=== PATIENT | female | born 1970 | race Asian ===

== ENCOUNTER 2019-02-17 09:25 | Emergency (ER) | payer BC ==
--- NOTE | 2019-02-17 09:48 | ER Document Report ---
ED Medical Screen (RME) - General Chief Complaint: Flank Pain Stated Complaint: BACK PAIN Time Seen by Provider: 02/17/19 09:39 Mode of Arrival: Ambulatory Information source: Patient Notes: Patient is an otherwise healthy 48-year-old female who presents to the emergency department with chief complaint of left lateral rib pain. Patient denies any known injury but states that the pain started yesterday after she was drinking alcohol and she is not sure if maybe she fell into something. She also reports increased activity and heavy lifting yesterday as she was getting ready for a birthday democrat. Patient denies any chest pain, shortness of breath, cough or fever. She has no history of pulmonary embolism. Exam: Lung sounds are clear and equal bilaterally. I have greeted and performed a rapid initial assessment of this patient. A comprehensive ED assessment and evaluation of the patient, analysis of test results and completion of the medical decision making process will be conducted by additional ED providers. Dictation of this chart was performed using voice recognition software; therefore, there may be some unintended grammatical errors. TRAVEL OUTSIDE OF THE [place] IN LAST 30 DAYS: No - Related Data Allergies/Adverse Reactions: No Known Allergies Allergy (Verified 02/17/19 09:27) Physical Exam - Vital signs Vitals: Temp Pulse Resp BP Pulse Ox 98.1 F 89 18 186/116 H 95 02/17/19 09:34 02/17/19 09:34 02/17/19 09:34 02/17/19 09:34 02/17/19 09:34 Course - Vital Signs Vital signs: Temp Pulse Resp BP Pulse Ox 98.1 F 89 18 186/116 H 95 02/17/19 09:34 02/17/19 09:34 02/17/19 09:34 02/17/19 09:34 02/17/19 09:34
--- NOTE | 2019-02-17 10:56 | RADIOLOGY REPORT (SQ) ---
EXAM DESCRIPTION: RIBS LEFT W/PA CHEST COMPLETED DATE/TIME: 02/17/2019 10:05 am REASON FOR STUDY: Left lateral rib pain COMPARISON: None. TECHNIQUE: Frontal view of the chest and additional views of the left ribs acquired. NUMBER OF VIEWS: PA chest, left rib detail two views LIMITATIONS: None. FINDINGS: FRONTAL CXR: No pneumothorax. No pleural effusion. No atelectasis or infiltrates. Cardi ac silhouette size, arsalan unremarkable. RIBS: Acute left lateral 8th and 9th nondisplaced rib fractures are present. OTHER: No other significant finding. IMPRESSION: Acute left lateral 8th and 9th nondisplaced rib fractures are present. No left chest wa ll air or pneumothorax. No left pleural effusion COMMENT: SITE OF TRAUMA/COMPLAINT MARKED/STAMP COMPLETED: NO. TECHNICAL DOCUMENTATION: JOB ID: [id number] [employer]- All Rights Reserved Reading location - IP/workstation name: [email or web address]
[2019-02-17] MEDS ORDERED: OXYCODONE-ACETAMINOPHEN 5-325 MG TABLET PO ONE (11:10)
--- NOTE | 2019-02-17 11:13 | ER Document Report ---
ED General - General Chief Complaint: Flank Pain Stated Complaint: BACK PAIN Time Seen by Provider: 02/17/19 09:39 Mode of Arrival: Ambulatory Notes: Patient is an otherwise healthy 48-year-old female who presents to the emergency department with chief complaint of left lateral rib pain. Patient denies any known injury but states that the pain started yesterday after she was drinking alcohol and she is not sure if maybe she fell into something. She also reports increased activity and heavy lifting yesterday as she was getting ready for a birthday republican. Patient denies any chest pain, shortness of breath, cough or fever. She has no history of pulmonary embolism. TRAVEL OUTSIDE OF THE [place] IN LAST 30 DAYS: No - Related Data Allergies/Adverse Reactions: No Known Allergies Allergy (Verified 02/17/19 09:27) Past Medical History - General Information source: Patient - Social History Smoking Status: Current Every Day Smoker Chew tobacco use (# tins/day): No Frequency of alcohol use: Occasional Drug Abuse: None Family History: Reviewed & Not Pertinent Patient has suicidal ideation: No Patient has homicidal ideation: No - Medical History Medical History: Negative Renal/ Medical History: Denies: Hx Peritoneal Dialysis Surgical Hx: Negative - Immunizations Immunizations up to date: Yes Review of Systems - Review of Systems Constitutional: No symptoms reported EENT: No symptoms reported Cardiovascular: No symptoms reported Respiratory: No symptoms reported Gastrointestinal: No symptoms reported Genitourinary: No symptoms reported Female Genitourinary: No symptoms reported Musculoskeletal: See HPI Skin: No symptoms reported Hematologic/Lymphatic: No symptoms reported Neurological/Psychological: No symptoms reported Physical Exam - Vital signs Vitals: Temp Pulse Resp BP Pulse Ox 98.1 F 89 18 186/116 H 95 02/17/19 09:34 02/17/19 09:34 02/17/19 09:34 02/17/19 09:34 02/17/19 09:34 - Notes Notes: PHYSICAL EXAMINATION: GENERAL: Well-appearing, well-nourished and in no acute distress. HEAD: Atraumatic, normocephalic. EYES: Pupils equal round and reactive to light, extraocular movements intact, conjunctiva are normal. ENT: Nares patent, oropharynx clear without exudates. Moist mucous membranes. NECK: Normal range of motion, supple without lymphadenopathy LUNGS: Breath sounds clear to auscultation bilaterally and equal. No wheezes rales or rhonchi. HEART: Regular rate and rhythm without murmurs ABDOMEN: Soft, nontender, nondistended abdomen. No guarding, no rebound. No masses appreciated. Female : deferred Musculoskeletal: Tenderness to palpation to left lateral/anterior ribs. No crepitus on palpation. NEUROLOGICAL: Cranial nerves grossly intact. Normal speech, normal gait. Normal sensory, motor exams PSYCH: Normal mood, normal affect. SKIN: Warm, Dry, normal turgor, no rashes or lesions noted. Course - Re-evaluation Re-evalutation: 02/17/19 11:15 X-ray shows acute lateral left eighth and ninth rib fractures. These are nondisplaced. No evidence of pneumothorax. Lung sounds are clear and equal bilaterally. Patient will be discharged home with prescription for pain medication and incentive spirometer. Discussed ED return precautions. - Vital Signs Vital signs: Temp Pulse Resp BP Pulse Ox 98.1 F 88 16 182/104 H 96 02/17/19 09:34 02/17/19 11:26 02/17/19 11:26 02/17/19 11:26 02/17/19 11:26 - Diagnostic Test Radiology reviewed: Image reviewed, Reports reviewed Discharge - Discharge Clinical Impression: Rib fractures Qualifiers: Encounter type: initial encounter Rib fracture type: multiple ribs Fracture type: closed Laterality: left Qualified Code(s): S22.42XA - Multiple fractures of ribs, left side, initial encounter for closed fracture Condition: Stable Disposition: HOME, SELF-CARE Additional Instructions: Rib Injuries and Fractures You have been diagnosed as having either bruised or broken ribs. These two injuries are treated in the same way. It will usually take four to six weeks for these injured ribs to heal. Sometimes, rib belts or anesthetic injections of the chest wall help reduce the pain. If you are using a rib belt, you should cough or take a deep breath at least every hour or two to prevent lung complications. You should not engage in any strenuous physical activity until released by your physician. The usual rule is "if it hurts, don't do it." Rib fractures can lead to serious lung complications including lung collapse, hemorrhage, and pneumonia. You should call the physician or return at once if any of the following occur: (1) Fever or chills. (2) Persistent cough, coughing up blood, or shortness of breath. (3) Increasing pain. (4) Weakness, lightheadedness, or fainting. Please take ibuprofen 600 mg every 6 hours. This will help with pain and inflammation. Alternate heat and ice to the area. Use the narcotic pain medication for severe pain only. Use the incentive spirometer at least 4 times per hour while awake. Please follow-up with your primary care provider. This may take 4-6 weeks to completely heal. Return to the emergency department if you experience any of the above warning signs. Prescriptions: Oxycodone HCl/Acetaminophen [Percocet 5-325 mg Tablet] 1 tab PO Q4H PRN #15 tablet PRN Reason: Forms: Return to Work
[2019-02-17 11:27] VITALS: BP 182/104
== END 2019-02-17 11:27 | disposition home or self-care (01) ==
LOC: ER 09:25
DX: S22.42XA Multiple fractures of ribs, left side, initial encounter for closed fracture (principal); R10.9 Unspecified abdominal pain; R07.9 Chest pain, unspecified; X58.XXXA Exposure to other specified factors, initial encounter; F17.200 Nicotine dependence, unspecified, uncomplicated
CPT/HCPCS: 99284